=== PATIENT | female | born 1960 ===

== ENCOUNTER 2016-07-01 17:48 | Emergency (ER) | payer SELFPAY ==
[~2016-07-01] VITALS: Wt 79.5 kg
[2016-07-01 18:20] VITALS: BP 147/75; PULSE 75
== END 2016-07-01 18:40 | disposition left against medical advice (07) ==
LOC: FTE 17:48
DX: Z53.21 Procedure and treatment not carried out due to patient leaving prior to being seen by health care provider (principal)